=== PATIENT | female | born 1960 | race Caucasian/White ===

== ENCOUNTER 2024-04-29 15:22 | Inpatient (IN) | payer MEDICARE ==
[2024-04-29 17:09] LABS: BASOPHILS PERCENT AUTO 0.1 % (0.1-1.3); EOSINOPHILS ABSOLUTE AUTO 0.06 K/uL (0.00-0.40); EOSINOPHILS PERCENT AUTO 0.9 % (0.0-5.4); HEMATOCRIT 43.7 % (34.3-46.0); IMMATURE GRAN ABSOLUTE AUTO 0.03 K/uL (0.00-0.23); IMMATURE GRAN PERCENT AUTO 0.4 % (0.0-0.7); LYMPHOCYTES ABSOLUTE AUTO 0.57 K/uL (0.8-3.3); LYMPHOCYTES PERCENT AUTO 8.2 % (11.4-47.7); MEAN CORPUSCULAR HEMOGLOBIN 28.2 pg (31.6-35.5); MEAN CORPUSCULAR VOLUME 87.9 fL (81.4-99.0); MONOCYTES ABSOLUTE AUTO 0.51 K/uL (0.20-0.90); MONOCYTES PERCENT AUTO 7.3 % (3.3-12.6); NEUTROPHILS PERCENT AUTO 83.1 % (40.0-78.1); PLATELET COUNT,PLT 542 K/uL (130-375); RED BLOOD CELL COUNT 4.97 M/uL (3.77-5.24)
[2024-04-29 17:09] LABS: BASE EXCESS ARTERIAL 3.7 mm/L; BICARBONATE,ARTERIAL 27.8 mmol/L (22.0-26.0); CARBOXYHEMOGLOBIN 4.1 % (0.0-1.6); METHEMOGLOBIN 0.7 %; O2 SATURATION ARTERIAL 94.1 % (95.0-98.0); OXYHEMOGLOBIN 89.6 %; PCO2 ARTERIAL 41.8 mmHg (35.0-42.0); PO2 ARTERIAL 72.3 mmHg (75.0-100.0); TOTAL HEMOGLOBIN 13.9 g/dL (12.0-16.0)
[2024-04-29 17:11] LABS: BASOPHILS ABSOLUTE AUTO 0.01 K/uL (0.00-0.10)
[2024-04-29 17:23] LABS: BLOOD UREA NITROGEN,BUN 15 mg/dL (7-18); CALCIUM 9.2 mg/dL (8.5-10.1); CARBON DIOXIDE,CO2 27 mmol/L (21-32); CHLORIDE,CL 102 mmol/L (100-108); CREATININE 0.9 mg/dL (0.6-1.0); ESTIMATED GFR 71 mL/min (>60); GLUCOSE RANDOM 125 mg/dL (74-106); POTASSIUM,K 3.3 mmol/L (3.6-5.2); SODIUM,NA 141 mmol/L (140-148)
[2024-04-29 17:27] LABS: ANION GAP 15.3 mmol/L (5.0-14.0)
[2024-04-29] MEDS: Albuterol/Ipratropium 3.0-0.5 MG/3 ML Neb Soln NEB ONE (17:44)
[2024-04-29] MEDS: Levofloxacin 250 MG Tab PO ONE (18:26)
[2024-04-29] MEDS: methylPREDNISolone Sodium Succinate 125 MG/2 ML SDV IVPUSH ONE (18:26)
[2024-04-29] MEDS: LORazepam 0.5 MG Tab PO ONE (18:26)
[2024-04-29] MEDS ORDERED: Sennosides/Docusate Sodium 50-8.6 MG Tab PO PRN (20:12)
[2024-04-29] MEDS ORDERED: Ondansetron 4 MG Tab.DIS PO PRN (20:12)
[2024-04-29] MEDS ORDERED: Albuterol 0.083% 2.5 MG/3 ML Neb Soln NEB PRN (20:12)
[2024-04-29] MEDS ORDERED: Magnesium Hydroxide 400 MG/5 ML Susp 30 ML Cup PO PRN (20:12)
[2024-04-29] MEDS ORDERED: Sodium Chloride 0.9% 10 ML Syringe FLUSH PRN (20:12)
[2024-04-29] MEDS ORDERED: Ondansetron 4 MG/2 ML SDV IV PRN (20:12)
[2024-04-29] MEDS ORDERED: LUMATEPERONE TOSYLATE 21 MG PO SCH (21:00)
[2024-04-29] MEDS: Sodium Chloride 0.9% 80 ML IV SCH (21:11)
[2024-04-29] MEDS: Iopamidol 612 MG/ML 100 ML Bottle IV SCH (21:11)
[2024-04-29] MEDS: Potassium Chloride 20 MEQ Tab.ER PO ONE (21:14)
[2024-04-29] MEDS: Acetaminophen 325 MG Tab PO PRN (21:14)
[2024-04-29] MEDS: Nicotine 14 MG/24 Hr Patch TRDERM PRN (21:14)
[2024-04-29] MEDS: Enoxaparin 40 MG/0.4 ML Syringe SUBCUT SCH (21:15)
[2024-04-29] MEDS: Albuterol/Ipratropium 3.0-0.5 MG/3 ML Neb Soln NEB SCH (21:15)
[2024-04-29] MEDS: Famotidine 20 MG Tab PO SCH (21:43)
[2024-04-29] MEDS: atorvaSTATin 20 MG Tab PO SCH (21:43)
[2024-04-30 05:51] LABS: EOSINOPHILS ABSOLUTE AUTO 0.05 K/uL (0.00-0.40); EOSINOPHILS PERCENT AUTO 1.2 % (0.0-5.4); HEMATOCRIT 38.9 % (34.3-46.0); HEMOGLOBIN 12.4 g/dL (11.2-15.5); IMMATURE GRAN ABSOLUTE AUTO 0.03 K/uL (0.00-0.23); IMMATURE GRAN PERCENT AUTO 0.7 % (0.0-0.7); LYMPHOCYTES ABSOLUTE AUTO 0.51 K/uL (0.8-3.3); LYMPHOCYTES PERCENT AUTO 12.6 % (11.4-47.7); MEAN CORPUSCULAR HEMOGLOBIN 27.8 pg (31.6-35.5); MEAN CORPUSCULAR HGB CONC 31.9 g/dL (31.6-35.5); MEAN CORPUSCULAR VOLUME 87.2 fL (81.4-99.0); MONOCYTES ABSOLUTE AUTO 0.41 K/uL (0.20-0.90); MONOCYTES PERCENT AUTO 10.1 % (3.3-12.6); NEUTROPHILS ABSOLUTE AUTO 3.04 K/uL (1.0-7.6); NEUTROPHILS PERCENT AUTO 75.4 % (40.0-78.1); PLATELET COUNT,PLT 475 K/uL (130-375); RED BLOOD CELL COUNT 4.46 M/uL (3.77-5.24)
[2024-04-30 06:05] LABS: ANION GAP 5.7 mmol/L (5.0-14.0); CALCIUM 9.5 mg/dL (8.5-10.1); CREATININE 0.9 mg/dL (0.6-1.0); EST CRCL DRUG DOSING (CG) 44.76 mL/min; MAGNESIUM 2.1 mg/dL (1.8-2.4); POTASSIUM,K 4.4 mmol/L (3.6-5.2)
[2024-04-30] MEDS: Pantoprazole 40 MG Tab.CR PO SCH (08:03)
[2024-04-30] MEDS: Metoprolol Succinate 25 MG Tab.ER PO SCH (08:03)
[2024-04-30] MEDS: buPROPion 150 MG Tab.ER PO SCH (08:04)
[2024-04-30] MEDS ORDERED: Non-Formulary Medication 1 Each (Omeprazole [Omeprazole] 20 MG Capsule.Dr) PO SCH (09:00)
[2024-04-30] MEDS ORDERED: Albuterol/Ipratropium 3.0-0.5 MG/3 ML Neb Soln NEB PRN (12:57)
[2024-05-01] MEDS ORDERED: Levofloxacin 250 MG Tab PO SCH (10:00)
== END 2024-04-30 15:45 | disposition home or self-care (01) | DRG 189 ==
LOC: JP.ED 15:22 → JP.MS 19:08
PROVIDERS: ADMIT Nurse Practitioner; ATTEND Internal Medicine
DX: J96.01 Acute respiratory failure with hypoxia (principal); R09.02 Hypoxemia; J44.1 Chronic obstructive pulmonary disease with (acute) exacerbation; J44.0 Chronic obstructive pulmonary disease with (acute) lower respiratory infection; J47.0 Bronchiectasis with acute lower respiratory infection; J20.9 Acute bronchitis, unspecified; F32.A Depression, unspecified; F41.9 Anxiety disorder, unspecified; K21.9 Gastro-esophageal reflux disease without esophagitis; F17.210 Nicotine dependence, cigarettes, uncomplicated; H26.9 Unspecified cataract; H54.7 Unspecified visual loss; M19.90 Unspecified osteoarthritis, unspecified site; G89.29 Other chronic pain; Z96.659 Presence of unspecified artificial knee joint; Z96.619 Presence of unspecified artificial shoulder joint; E87.6 Hypokalemia; I25.2 Old myocardial infarction; Z95.5 Presence of coronary angioplasty implant and graft; Z88.5 Allergy status to narcotic agent; Z91.040 Latex allergy status; Z79.51 Long term (current) use of inhaled steroids; Z79.899 Other long term (current) drug therapy; Z79.02 Long term (current) use of antithrombotics/antiplatelets; Z98.891 History of uterine scar from previous surgery; Z90.49 Acquired absence of other specified parts of digestive tract; Z90.710 Acquired absence of both cervix and uterus; Z98.890 Other specified postprocedural states
CPT/HCPCS: 36415; 36600; 71046 ×2; 80048; 82803; 83605; 85025; 85379; 86140; 87040 ×2; 87428; 94640; 96374; 99285; A9270 ×3; J2919; 71260; 83735; 99222; 99238; J1650; Q9967